=== PATIENT | male | born 1950 | race Caucasian/White ===

== ENCOUNTER 2020-04-09 08:11 | Emergency (ER) | payer MEDICARE, SELFPAY ==
[2020-04-09 08:35] VITALS: BP 157/90; PULSE 70; RESP 20; TEMP 36.8; O2SAT 97
--- NOTE | 2020-04-09 09:13 | PC.NURSE ---
PT REFUSING ALL SCANS AT THIS TIME, EDP ERICKA AWARE.
--- NOTE | 2020-04-09 10:27 | ED.LOWEXIN ---
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 He gave permission for her to be present during the investigation. He hurt his left lower leg April 05 when he was lifting his 70 pound Labrador retriever. Dog is old and needs help. That hurt his lower leg along the villegas above the ankle to beneath the knee. This is a similar injury that he had previously also lifting the dog. He is tried a couple [place] did not help. He has pain with walking and weightbearing. He has not been sick, he denies medical problems. His previous surgeries include left knee. Does not smoke cigarettes, drink alcohol, do drugs. 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 Related Data Home Medications Medication Instructions Recorded Confirmed multivit with min-folic acid mg PO DAILY 04/09/20 [Adult One Daily Multivitamin] Allergies Allergy/AdvReac Type Severity Reaction Status Date / Time No Known Allergies Allergy Unknown Verified 04/09/20 08:41 Review of Systems Review of Systems: Narrative: CONSTITUTIONAL: Denies fever, chills, or sweats. EYES: Denies visual changes, redness, or discharge. ENT: Denies rhinorrhea, congestion, sore throat, or otalgia. CARDIOVASCULAR: Denies chest pain, palpitations, or edema. RESPIRATORY: Denies cough or dyspnea. GASTROINTESTINAL: Denies abdominal pain, nausea, vomiting, or diarrhea. GENITOURINARY: Denies dysuria or hematuria. SKIN: Denies rash or itching. MUSCULOSKELETAL: Denies back pain, joint pain, but only has a left anterior calf pain . NEUROLOGIC: Denies headache, numbness, or weakness. PSYCHIATRIC: Denies anxiety or depression. [facility] Past Medical History Medical History (Updated 04/09/20 @ 10:29 by Nakia Drew MD) Anterior villegas splints Surgical History Surgical History (Updated 04/09/20 @ 10:29 by Nakia Drew MD) History of knee surgery Social History Social History (Updated 04/09/20 @ 10:29 by Nakia Drew MD) Smoking status: Never smoker Alcohol intake: never Substance use: never Gender identity (if verbalized by the patient): Male Sexual Orientation (if Verbalized by the Patient): Straight or Heterosexual Exam Narrative: Exam Narrative: GENERAL: Well-appearing, well-nourished, and in no acute distress. HEAD: Normocephalic, atraumatic. EYES: PERRLA and EOMI. ENT: Nares clear, no rhinorrhea or epistaxis. Mucous membranes moist. NECK: Supple. CHEST: Clear to auscultation. No respiratory distress. HEART: Regular rate and rhythm. No murmur heard. Normal peripheral pulses. ABDOMEN: Soft, nontender, nondistended, normal active bowel sounds. EXTREMITIES: Normal range of motion. No edema. No tenderness to my exam. SKIN: Warm, dry, no rash. NEURO: No focal deficits. Alert and oriented x3. PSYCH: Normal mood and affect. Course Consultations Consultation #1: The x-ray tech came to me and said that the patient refused chest x-ray. Date: 04/09/20 Time: 10:30 Vital Signs Vital signs: Vital Signs Temperature 98.3 F 04/09/20 08:35 Pulse Rate 70 04/09/20 08:35 Respiratory Rate 20 04/09/20 08:35 Blood Pressure 157/90 H 04/09/20 08:35 Pulse Oximetry 97 04/09/20 08:35 Temperature 98.3 F 04/09/20 08:35 Pulse Rate 70 04/09/20 08:35 Respiratory Rate 20 04/09/20 08:35 Blood Pressure 157/90 H 04/09/20 08:35 Pulse Oximetry 97 04/09/20 08:35 MDM - Extremity Injury (Lower) Medical Records Attestation: I reviewed the patient's medical records. Discharge Plan Discharge Clinical Impression: Anterior villegas splints Patient Disposition: Home, Self-Care Condition: Stable Instructions: Villegas Splints (ED) Additional Instructions: Wear the walking boot if that helps the pain. Prescriptions: New nap
[2020-04-09 10:39] VITALS: BP 145/55; PULSE 72; RESP 16; O2SAT 99
== END 2020-04-09 10:40 | disposition home or self-care (01) ==
PROVIDERS: Emergency Provider Emergency Medicine
DX: S86.892A Other injury of other muscle(s) and tendon(s) at lower leg level, left leg, initial encounter (principal); X50.0XXA Overexertion from strenuous movement or load, initial encounter
CPT/HCPCS: 99283

== ENCOUNTER 2023-01-31 15:58 | Emergency (ER) | payer MEDICARE, SELFPAY ==
[2023-01-31 16:18] VITALS: BP 167/73; PULSE 62; RESP 17; TEMP 36.7; O2SAT 97
--- NOTE | 2023-01-31 17:12 | ED.WOUNDLAC ---
HPI - Wound/Laceration General Chief Complaint: Wound/Laceration Stated Complaint: left thumb injury Time Seen by Provider: 01/31/23 16:53 History of Present Illness HPI narrative: Patient is a 72-year-old left-handed male here for redness and swelling to his left fingertip x3 days. Patient states that he chronically bites his fingernails and occasionally will get an infection near the fingertip. He states he has never had these drained in the past but they have had good response to oral antibiotics. He denies any fevers, chills, difficulty moving the digit, nausea or vomiting. He denies past medical history. Related Data Home Medications Medication Instructions Recorded Confirmed multivitamin with minerals-folic mg PO DAILY 04/09/20 acid 0.4 mg tablet (Adult One Daily Multivitamin) Allergies Allergy/AdvReac Type Severity Reaction Status Date / Time No Known Allergies Allergy Unknown Verified 04/09/20 08:41 Review of Systems Review of Systems: Gen.: Denies fevers or chills Eyes: Denies eye pain or visual change ENT: Denies congestion Respiratory: Denies shortness of breath or cough CV: Denies chest pain or palpitations GI: Denies abdominal pain nausea, emesis or diarrhea denies burning, urgency, frequency or hematuria Musculoskeletal: Reports left h finger pain Neuro: Denies numbness, tingling, weakness or focal weakness Skin: Denies rash Except as documented, all other systems reviewed and negative [facility] Past Medical History Medical History Anterior villegas splints Surgical History Surgical History History of knee surgery Social History Social History (Updated 04/09/20 @ 10:29 by Nakia Drew MD) Smoking status: Never smoker Alcohol intake: never Substance use: never Gender identity (if verbalized by the patient): Male Sexual Orientation (if Verbalized by the Patient): Straight or Heterosexual Exam Narrative: Gen: Alert, oriented, no acute distress Eyes: EOMI, no icterus Pulm: Respirations even and unlabored, symmetric thorax expansion, no audible stridor or visible cyanosis CV: Regular rate per telemetry GI: No distension, no voluntary/involuntary guarding Neuro: AOx4, moves all extremities without apparent difficulty or weakness, follows commands MSK: Full range of motion in the thumb without pain. No tenderness along the flexor tendons of the thumb. Skin: There is soft tissue swelling around the nailbed on the left thumb without fluctuance, induration or overlying erythema. There is some dark red discoloration underneath the nailbed on the left thumb. Psych: Normal mood/affect, insight/judgement good, adequate fund of knowledge, recent/remote memory intact Course Vital Signs Vital signs: Vital Signs Temperature 98.1 F 01/31/23 16:18 Pulse Rate 62 01/31/23 16:18 Respiratory Rate 17 01/31/23 16:18 Blood Pressure 167/73 H 01/31/23 16:18 Pulse Oximetry 97 01/31/23 16:18 Temperature 98.1 F 01/31/23 16:18 Pulse Rate 62 01/31/23 16:18 Respiratory Rate 17 01/31/23 16:18 Blood Pressure 167/73 H 01/31/23 16:18 Pulse Oximetry 97 01/31/23 16:18 MDM - Wound/Laceration MDM Narrative Medical decision making narrative: 72-year-old left-handed male here for evaluation of some soft tissue swelling around the left nailbed of the thumb for the past 3 days, onset after he bit his nails. No obvious paronychia, felon, evidence of deep hand space infection such as flexor tenosynovitis. No trauma to the hand to indicate need for imaging. He reports good response to oral antibiotics in the past. We will send home with Mounika, we discussed return precautions and he voiced understanding. Discharge Plan Discharge Clinical Impression: Cellulitis, finger Patient Disposition: Home, Self-Care Condition: Stable Instr
[2023-01-31 17:18] VITALS: BP 150/92; PULSE 56; RESP 14; O2SAT 95
== END 2023-01-31 17:24 | disposition home or self-care (01) ==
PROVIDERS: Emergency Provider Physician Assistant
DX: L03.012 Cellulitis of left finger (principal)
CPT/HCPCS: 99283

== ENCOUNTER 2023-07-27 06:39 | Emergency (ER) | payer MEDICARE, SELFPAY ==
[2023-07-27 06:40] VITALS: BP 173/73; PULSE 62; RESP 16; TEMP 36.2; O2SAT 99
--- NOTE | 2023-07-27 07:13 | ED.EXTPRO ---
HPI - Extremity Problem General Chief complaint: Extremity Problem,Nontraumatic Stated complaint: L thumb pain/redness Time Seen by Provider: 07/27/23 06:56 History of Present Illness HPI Narrative: 72-year-old male present emergency department for evaluation of infection to the left thumb nail. Patient reports he did jam his finger few weeks ago. Patient states he was then doing some dishes with dirty nanny caregiver and the next day he noticed some redness at the base of the nail. Patient does have a previous nail injury from a few years ago. Related Data Home Medications Medication Instructions Recorded Confirmed multivitamin with minerals-folic mg PO DAILY 04/09/20 acid 0.4 mg tablet (Adult One Daily Multivitamin) Allergies Allergy/AdvReac Type Severity Reaction Status Date / Time No Known Allergies Allergy Unknown Verified 07/27/23 06:59 Review of Systems Review of Systems: All systems reviewed & are unremarkable except as noted in HPI and below PMFSH Past Medical History Medical History Anterior villegas splints Surgical History Surgical History History of knee surgery Social History Social History (Updated 04/09/20 @ 10:29 by Nakia Drew MD) Smoking status: Never smoker Alcohol intake: never Substance use: never Gender identity (if verbalized by the patient): Male Sexual Orientation (if Verbalized by the Patient): Straight or Heterosexual Exam Narrative: APPEARANCE: Well appearing, no pain, no distress, well-nourished. HEAD: normocephalic, atraumatic. EYES: PERRLA/EOMI, conjunctivae clear. NOSE: Normal no drainage ABDOMINAL: Soft, nontender, nondistended, normal bowel sounds MUSCULOSKELETAL: Moves all extremities. Strength/ROM intact, No edema, No calf tenderness. NEURO: Alert. Cranial nerves II through XII intact. Good gait. Good coordination SKIN: Cellulitis versus paronychia and base of left thumb nail Course Course Emergency Course: 72-year-old male presented the emergency department for evaluation of a suspected infection to his left thumb. Paronychia without abscess amenable to drainage. I&D was attempted but no fluid was expressed. Patient was stated antibiotics in the emergency department. Patient was advised on wound care and encouraged of close follow-up with his primary care physician. Patient will be prescribed Keflex for home. Patient declined an x-ray Vital Signs Vital signs: Vital Signs Temperature 97.2 F L 07/27/23 06:40 Pulse Rate 62 07/27/23 06:40 Respiratory Rate 16 07/27/23 06:40 Blood Pressure 173/73 H 07/27/23 06:40 Pulse Oximetry 99 07/27/23 06:40 Oxygen Delivery Room Air 07/27/23 06:40 Temperature 97.2 F L 07/27/23 06:40 Pulse Rate 62 07/27/23 06:40 Respiratory Rate 16 07/27/23 06:40 Blood Pressure 173/73 H 07/27/23 06:40 Pulse Oximetry 99 07/27/23 06:40 Oxygen Delivery Room Air 07/27/23 06:40 MDM - Extremity (Nontraumatic) Differential Diagnosis Differential diagnosis: Likely cellulitis and other Discharge Plan Discharge Clinical Impression: Paronychia Patient Disposition: Home, Self-Care Condition: Stable Instructions: Antibiotic Form, Paronychia (ED) Additional Instructions: Antibiotics as directed until completed. Have close follow-up with your primary care physician. Prescriptions: New cephalexin 500 mg capsule 500 mg PO Q12H 7 Days Qty: 14 0RF No Action Adult One Daily Multivitamin 0.4 mg Tablet PO DAILY naproxen sodium [Anaprox DS] 550 mg tablet 550 mg PO Q12H PRN (Reason: pain) Qty: 20 0RF doxycycline hyclate 100 mg capsule 100 mg PO BID Qty: 10 0RF Follow-up/Referrals: PHYSICIAN,CRUSHER SCREEN REPAIRER [Primary Care Provider] -
[2023-07-27] MEDS: CEPHALEXIN 500 MG CAPSULE PO (07:32)
== END 2023-07-27 07:45 | disposition home or self-care (01) ==
LOC: ANHED 07:38
PROVIDERS: Emergency Provider Emergency Medicine
DX: L03.012 Cellulitis of left finger (principal)
CPT/HCPCS: 99283; A9270